=== PATIENT | female | born 1940 | race Caucasian/White ===

== ENCOUNTER 2022-02-12 21:30 | Emergency (ER) | payer MEDICARE, SELFPAY ==
[2022-02-12 21:32] VITALS: BP 184/71; PULSE 79; RESP 16; TEMP 36.9; O2SAT 96; BMI 23.3
[2022-02-12 21:39] VITALS: BMI 23.3
--- NOTE | 2022-02-12 21:40 | CT_ITS ---
PROCEDURE INFORMATION: Exam: CT Abdomen And Pelvis With Contrast Exam date and time: 02/12/2022 10:27 PM Age: 82 years old Clinical indication: Abdominal pain; Generalized; Additional info: Abd pain TECHNIQUE: Imaging protocol: Computed tomography of the abdomen and pelvis with contrast. Radiation optimization: All CT scans at this facility use at least one of these dose optimization techniques: automated exposure control; mA and/or kV adjustment per patient size (includes targeted exams where dose is matched to clinical indication); or iterative reconstruction. Contrast material: ISOVUE; Contrast volume: 75 ml; Contrast route: IV; COMPARISON: No relevant prior studies available. FINDINGS: Heart: Coronary artery calcifications. Liver: Mild fatty infiltration of the liver along the falciform ligament. Gallbladder and bile ducts: Distended gallbladder. Pancreas: Normal. No ductal dilation. Spleen: Normal. No splenomegaly. Adrenal glands: Normal. No mass. Kidneys and ureters: Low attenuation renal lesions measuring up to 9 mm in diameter are incompletely characterized, but are likely cysts. No followup imaging is warranted. Stomach and bowel: Posterior gastric diverticulum. Small amount of free fluid in the pelvis likely related to bowel pathology. Appendix: Unremarkable appendix. Intraperitoneal space: Unremarkable. No free air. No significant fluid collection. Vasculature: The arteries demonstrate moderate atherosclerotic disease. Lymph nodes: Unremarkable. No enlarged lymph nodes. Urinary bladder: Unremarkable as visualized. Reproductive: There is a left ovarian mass measuring 3.5 x 2.7 cm image 101 series 3. Bones/joints: The lumbar spine demonstrates moderate degenerative changes at multiple levels. Soft tissues: There is a small right inguinal hernia containing a short segment of small bowel. The small bowel proximal to this is fluid-filled and dilated. Other findings: Stigmata of old granulomatous disease. IMPRESSION: 1. There is a small right inguinal hernia containing a short segment of small bowel. The small bowel proximal to this is fluid-filled and dilated. This is worrisome for incarcerated hernia causing small bowel obstruction. 2. There is a left ovarian mass measuring 3.5 x 2.7 cm image 101 series 3. Outpatient follow-up ultrasound versus contrast-enhanced MRI is recommended to exclude malignancy. 3. THIS REPORT CONTAINS FINDINGS THAT MAY BE CRITICAL TO PATIENT CARE. The findings were verbally communicated via telephone conference with BROOKE MATOS at 11:11 PM EDT on 02/12/2022. The findings were acknowledged and understood. COMMENTS: Consistent with the [employer]'s Incidental Findings Committee white paper (J Am Cristopher Radiol 2018): Any incidental renal lesion less than 1 cm or classified as too small to characterize, or any incidental cystic renal lesion characterized as simple-appearing, is likely benign. No follow-up imaging is recommended for these lesions per consensus recommendations based on imaging criteria.
[2022-02-12 21:44] LABS: Coronavirus 19, PCR Not Detected (NotDetected); Influenza A, PCR Not Detected (NotDetected); Influenza B, PCR Not Detected (NotDetected)
[2022-02-12 21:53] LABS: Basophils # 0.1 K/mm3 (0-0.2); Basophils % 0.6 % (0.1-2.0); Eosinophils # 0.1 K/mm3 (0.0-0.4); Eosinophils % 1.2 % (0.1-12.0); Hematocrit 44.5 % (37.0-47.0); Lymphocytes % 9.1 % (10-50); Mean Corpuscular HGB Conc 31.6 g/dL (31.8-35.4); Mean Corpuscular Hemoglobin 30.7 pg (27.0-31.2); Mean Corpuscular Volume 97.1 fl (81-99); Mean Platelet Volume 8.2 fl (7.4-10.4); Monocytes # 0.3 K/mm3 (0.1-1.0); Monocytes % 2.5 % (1.7-9.3); Neutrophils # 9.1 K/mm3 (1.8-7.8); Neutrophils % 86.7 % (37.0-80.0); Platelet Count 311 K/mm3 (142-424); Red Blood Count 4.58 M/mm3 (4.20-5.40); Red Cell Distribution Width 13.1 % (11.5-17.5); White Blood Count 10.5 K/mm3 (4.8-10.8)
[2022-02-12 21:54] LABS: MANUAL DIFFERENTIAL MANUAL DIFFERENTIAL (MANUAL DIFF)
[2022-02-12 22:02] LABS: Alanine Aminotransferase 22 U/L (12-78); Albumin Level 4.6 g/dl (3.5-5.0); Albumin/Globulin Ratio 1.3 (1.1-1.8); Alkaline Phosphatase 120 U/L (38-126); Amylase 70 U/L (30-110); Anion Gap 13.9 mEq/L (5-15); Aspartate Amino Transferase 31 U/L (14-36); Bilirubin,Total 0.7 mg/dl (0.2-1.3); Blood Urea Nitrogen 18 mg/dl (7-17); Calcium 10.1 mg/dl (8.4-10.2); Carbon Dioxide 32 mmol/L (22.0-30.0); Chloride 99 mmol/L (98-107); Creatinine Clearance Estimated 44 mL/min (50-200); Estimated Glomerular Filt Rate 53 ml/min (>60); GFR (African American) 64 ML/MIN (>60); Globulin 3.5 g/dL (1.3-3.2); Glucose 194 mg/dl (74-100); Lipase 56 U/L (23-300); Potassium 3.9 mmoL/L (3.5-5.1); Sodium 141 mmol/L (136-145); Total Protein,Serum 8.1 g/dl (6.3-8.2)
[2022-02-12 22:07] LABS: C-Reactive Protein 1.2 mg/L (0-4)
[2022-02-12 22:21] LABS: Procalcitonin 0.046 ng/mL (0.0-2.0)
--- NOTE | 2022-02-12 22:24 | PC.NURSE ---
Checked in on patient. Shes currently resting with family at bedside. Patient offered a warm blanket. Lights are dimmed for patient comfort. Rechecked patients nausea and abdominal pain. Pt states that the medications have only helped a little. MD notified, pending new orders.
[2022-02-12 22:41] LABS: Erythrocyte Sedimentation Rate 22 mm/hr (0-30)
[2022-02-12 22:49] LABS: NT Pro Brain Natriuretic Pep. 234 pg/mL (0-450)
[2022-02-12 22:50] LABS: Lymphocytes % 16 % (10-50); Monocytes % 1 % (2-9); Neutrophils % 83 % (42-76); Platelet Estimate Normal; RBC Morphology Normal; Total Cells Counted 100
[2022-02-12 23:00] VITALS: BP 146/65; PULSE 75; O2SAT 96
[2022-02-12 23:30] VITALS: BP 145/67; PULSE 78; O2SAT 96
--- NOTE | 2022-02-12 23:52 | HMH.EDNVD ---
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 The time I documented below is in addition to time spent performing reported procedures but includes the following listed in this critical care notation. Medical Decision Making - Medical Records Medical records reviewed: Yes: I reviewed the patient's medical records. - Yobany Inquiry Pt receiving controlled substance: No Vital Signs: 02/12/22 21:32 Temperature 98.4 F Temperature Source Oral Pulse Rate [Right] 79 Respiratory Rate 16 Blood Pressure [Right Arm] 184/71 H Blood Pressure Mean [Right Arm] 108 02 Sat by Pulse Oximetry 96 - Lab Data Lab results reviewed: Yes: I reviewed the patient's lab results. Lab Results 02/12/22 21:35: SARS-CoV-2 (PCR) Not detected, Influenza A Untype (PCR) Not detected, Influenza Type B (PCR) Not detected 02/12/22 21:44: WBC 10.5, RBC 4.58, Hgb 14.0, Hct 44.5, MCV 97.1, MCH 30.7, MCHC 31.6 L, RDW 13.1, Plt Count 311, MPV 8.2, Neut % (Auto) 86.7 H, Lymph % (Auto) 9.1 L, Mitchell % (Auto) 2.5, Eos % (Auto) 1.2, Baso % (Auto) 0.6, Neut # (Auto) 9.1 H, Lymph # (Auto) 1.0, Mitchell # (Auto) 0.3, Eos # (Auto) 0.1, Baso # (Auto) 0.1, Total Counted 100, Neutrophils % (Manual) 83 H, Lymphocytes % (Manual) 16, Monocytes % (Manual) 1 L, Platelet Estimate Normal, RBC Morphology Normal, ESR 22 02/12/22 21:44: Sodium 141, Potassium 3.9, Chloride 99, Carbon Dioxide 32 H, Anion Gap 13.9, BUN 18 H, Creatinine 1.00, Estimated Creat Clear 44, Estimated GFR 53 L, Est GFR ( Amer) 64, Glucose 194 H, Calcium 10.1, Total Bilirubin 0.7, AST 31, ALT 22, Alkaline Phosphatase 120, C-Reactive Protein 1.2, Total Protein 8.1, Albumin 4.6, Globulin 3.5 H, Albumin/Globulin Ratio 1.3, Amylase 70, Lipase 56, Procalcitonin 0.046 02/12/22 21:44: NT-Pro-B Natriuret Pep 234 Result diagrams: 02/12/22 21:44 02/12/22 21:44 Orders (Tests/Meds): ED MEDICATIONS Generic Name Dose Route Start Last Admin Trade Name Freq PRN Reason Stop Dose Admin Sodium Chloride 1,000 mls @ 999 mls/hr 02/12/22 21:45 02/12/22 21:50 Sod Chlor 0.9% 1000ml Bag IV 02/12/22 22:45 999 mls/hr .Q1H1M ARNOLD Administration Sodium Chloride 8 ml 02/12/22 21:42 Sodium Chloride 0.9% 10ml Vial IV 03/14/22 21:41 NEEDED PRN dilute pepcid Discontinued Medications Generic Name Dose Route Start Last Admin Trade Name Freq PRN Reason Stop Dose Admin Famotidine 20 mg 02/12/22 21:42 02/12/22 21:51 Famotidine 20mg/2ml Vial IV 02/12/22 21:43 20 mg ONCE ONE Administration Iopamidol 75 ml 02/12/22 22:37 02/12/22 22:37 Iopamidol-370 (76%);100ml Bottle IV 02/12/22 22:38 75 ml ONCE ONE Administration Metoclopramide HCl 10 mg 02/12/22 21:42 02/12/22 21:51 Metoclopramide Hcl 10mg/2ml Vial IVP 02/12/22 21:43 10 mg ONCE ONE Administration Ondansetron HCl 4 mg 02/12/22 21:42 02/12/22 21:51 Ondansetron 4mg/2ml Vial IV 02/12/22 21:43 4 mg ONCE ONE Administration Sodium Chloride 10 ml 02/12/22 22:37 02/12/22 22:37 Sodium Chloride 0.9% 10ml Syr (Rad Only) IV 02/12/22 22:38 10 ml ONCE ONE Administration ORDERS Category Date Time Status Urinalysis and Microscopic Stat Lab 02/12/22 21:40 Ordered - CT Data CT Scan: Abdomen, Pelvis Time Received: 00:[address] Reviewed: Yes: I have viewed the radiologist's interpretation Preliminary Findings: Abnormal (see report ) - Physician Consu
[2022-02-13] VITALS: BP 134/64; PULSE 77; O2SAT 95
[2022-02-13 00:09] VITALS: BP 134/64; PULSE 77; RESP 16; TEMP 36.9; O2SAT 95
== END 2022-02-13 00:17 | disposition home or self-care (01) ==
PROVIDERS: Emergency Provider Emergency Medicine; PCP Family Medicine
DX: K40.30 Unilateral inguinal hernia, with obstruction, without gangrene, not specified as recurrent (principal); R11.2 Nausea with vomiting, unspecified; Z20.822 Contact with and (suspected) exposure to COVID-19; Z79.899 Other long term (current) drug therapy; Z88.0 Allergy status to penicillin
CPT/HCPCS: 74177; 80053; 82150; 83690; 83880; 84145; 85007; 85025; 85651; 86140; 96361; 96374; 96375; 99285; C9803; J2405; Q9967; U0003; U0005

== ENCOUNTER → 2022-03-06 13:47 | Outpatient (CLI) | payer MEDICARE, SELFPAY ==
--- NOTE | 2022-03-06 13:51 | US_ITS ---
FINAL REPORT CLINICAL HISTORY: LT OVARIAN MASS FINDINGS: Transvaginal sonographic images of the pelvis were obtained. The uterus is surgically absent. The right ovary is not visualized. The left ovary appears enlarged with a solid-appearing mass measuring 3.3 cm with a small cyst or cystic component adjacent to it. IMPRESSION: 3.3 cm solid-appearing mass in the left ovary worrisome for neoplasm. Reviewed, Interpreted and Dictated by Bhaskar Abraham III, MD Transcribed by Demetria Waddell Authenticated and [facility]
== END ==
PROVIDERS: PCP Family Medicine; Visit Provider Family Medicine
DX: D39.12 Neoplasm of uncertain behavior of left ovary (principal)
CPT/HCPCS: 76830

== ENCOUNTER → 2022-05-02 09:55 | Outpatient (CLI) | payer MEDICARE, SELFPAY ==
[2022-05-03 08:16] LABS: Cancer Antigen (CA) 125 6.4 U/mL (0.0-38.1)
== END ==
PROVIDERS: PCP Family Medicine; Visit Provider Nurse Practitioner Obstetrics & Gynecology
DX: K40.30 Unilateral inguinal hernia, with obstruction, without gangrene, not specified as recurrent (principal); N83.8 Other noninflammatory disorders of ovary, fallopian tube and broad ligament
CPT/HCPCS: 36415; 86316

== ENCOUNTER → 2022-05-16 10:21 | Outpatient (CLI) | payer MEDICARE, SELFPAY ==
--- NOTE | 2022-05-16 10:32 | ECG_ITS ---
APPROVED REPORT Exam: Resting ECG HR:56 bpm ECG Measurements Heart Rate 56 AXES WI 136 P 50 QRSd 120 QRS 64 QT 389 T 36 QTc 382 Conclusion SINUS BRADYCARDIA WITH OCCASIONAL SUPRAVENTRICULAR PREMATURE COMPLEXES INFERIOR MYOCARDIAL INFARCTION , PROBABLY OLD [40+ ms Q WAVE AND/OR ST/T ABNORMALITY IN II/aVF] ANTEROLATERAL MYOCARDIAL INFARCTION , PROBABLY OLD [40+ ms Q WAVE IN I/aVL/V3-V6] ABNORMAL ECG UNCONFIRMED REPORT Electronically signed by : Yovanny Magaña MD 05/16/2022 22:04:09
[2022-05-16 10:37] LABS: Microscopic, Urine URINE MICROSCOPIC (MICROSCOPIC)
[2022-05-16 10:57] LABS: Appearance,Urine SL CLOUDY (Clear); Bilirubin,Urine Negative (Negative); Blood, Urine Negative (Negative); Color,Urine YELLOW (Yellow); Glucose,Urine (UA) Negative (Negative); Ketones,Urine Negative (Negative); Leukocyte Esterase,Urine TRACE (Negative); Nitrate,Urine Negative (Negative); Protein,Urine Negative (Negative); Urobilinogen,Urine 0.2 EU/dl (0.2)
[2022-05-16 11:04] LABS: Basophils # 0.1 K/mm3 (0-0.2); Eosinophils # 0.1 K/mm3 (0.0-0.4); Eosinophils % 2.7 % (0.1-12.0); Hematocrit 42.7 % (37.0-47.0); Hemoglobin 13.1 g/dL (12.2-16.2); Lymphocytes # 1.9 K/mm3 (0.7-4.5); Lymphocytes % 41.9 % (10-50); Mean Corpuscular HGB Conc 30.8 g/dL (31.8-35.4); Mean Corpuscular Hemoglobin 30.3 pg (27.0-31.2); Mean Corpuscular Volume 98.5 fl (81-99); Mean Platelet Volume 8.1 fl (7.4-10.4); Monocytes # 0.2 K/mm3 (0.1-1.0); Neutrophils # 2.3 K/mm3 (1.8-7.8); Neutrophils % 49.2 % (37.0-80.0); Platelet Count 281 K/mm3 (142-424); Red Blood Count 4.33 M/mm3 (4.20-5.40); Red Cell Distribution Width 13.1 % (11.5-17.5); White Blood Count 4.6 K/mm3 (4.8-10.8)
[2022-05-16 11:28] LABS: Chloride 101 mmol/L (98-107); Potassium 4.2 mmoL/L (3.5-5.1); Sodium 142 mmol/L (136-145)
[2022-05-16 11:29] LABS: Bacteria,Urine Trace /lpf; WBC,Urine Occasional #/hpf (0-3)
[2022-05-16 11:30] LABS: Squamous Epithelial Cell,Urine Occasional #/hpf (0-5)
[2022-05-16 11:31] LABS: Anion Gap 13.2 mEq/L (5-15); Blood Urea Nitrogen 20 mg/dl (7-17); Calcium 10.1 mg/dl (8.4-10.2); Carbon Dioxide 32 mmol/L (22.0-30.0); Estimated Glomerular Filt Rate 60 ml/min (>60); GFR (African American) 73 ML/MIN (>60); Glucose 96 mg/dl (74-100)
== END ==
PROVIDERS: PCP Family Medicine; Visit Provider Surgery
DX: K40.30 Unilateral inguinal hernia, with obstruction, without gangrene, not specified as recurrent (principal); K40.90 Unilateral inguinal hernia, without obstruction or gangrene, not specified as recurrent
CPT/HCPCS: 36415; 80048; 81001; 85025; 93005

== ENCOUNTER 2022-05-30 12:19 | Emergency (ER) | payer MEDICARE, SELFPAY ==
[2022-05-30 12:29] VITALS: BP 159/85; PULSE 104; RESP 18; O2SAT 95; BMI 23.3
--- NOTE | 2022-05-30 12:41 | XR_ITS ---
FINAL REPORT TECHNIQUE: Chest PA & Lateral CLINICAL HISTORY: cough, congestion FINDINGS: 2 views of the chest were performed. The heart size is normal. The mediastinum is within normal limits. There is no acute cardiopulmonary process. There are no pleural effusions. There is no pneumothorax. The bony thorax appears intact. IMPRESSION: No acute cardiopulmonary process. Reviewed, Interpreted and Dictated by Bhaskar Abraham III, MD Transcribed by Krishna Mojica Authenticated and . [facility]
--- NOTE | 2022-05-30 12:41 | EXP.UTC ---
Discharge Plan Disposition Patient Disposition: Home, Self-Care Condition: Good Prescriptions Prescriptions: New benzonatate [benzonatate] 100 mg capsule 100 mg PO TIDP PRN (Reason: Cough) Qty: 30 0RF oseltamivir [Tamiflu] 75 mg capsule 75 mg PO BID Qty: 10 0RF methylprednisolone 4 mg Tablets,Dose Pack 4 mg PO DIRECTED Qty: 21 0RF cefdinir 300 mg capsule 300 mg PO BID Qty: 20 0RF No Action lisinopril 20 MG tablet 20 mg PO DAILY omeprazole 20 MG capsule,delayed release(DR/EC) 20 mg PO DAILY furosemide 20 MG tablet 20 mg PO DAILY Referrals Follow up/Referrals: Kiersten Stevens MD [Primary Care Provider] - See instructions Activity Restrictions/Add. Instructions Additional Instructions/Restrictions: Drink plenty of fluids. Take tylenol or ibuprofen for pain or fever. Take the medications as directed. Follow up with your regular doctor. GO TO THE ER FOR ANY WORSENING SYMPTOMS Clinical Impressions Clinical Impression: Influenza A, Strep throat Instructions Patient Instructions: DI for Influenza -- Adult, Oseltamivir Discharge ED Provider: Damon Hollis [facility] General Stated complaint: Vomitting, Cough, Drainage, Weakness Mode of Arrival: Wheelchair Source of Information: Patient Limitations: No Limitations Time Seen by Provider: 05/30/22 12:45 Description of Symptoms (Recalled from Triage Doc. by RN): c/o vomiting, drainage and cough since last night. States she feels like she is having motion sickness History of Present Illness Provider Complaint: She states that she has had sore throat, chills, chest congestion, and body aches for the past 1 day. Related Data Home Medications Medication Instructions Recorded Confirmed furosemide 20 mg tablet 20 mg PO DAILY Fluid 02/12/22 05/16/22 lisinopril 20 mg tablet 20 mg PO DAILY High blood pressure 02/12/22 05/16/22 omeprazole 20 mg capsule,delayed 20 mg PO DAILY GERD 02/12/22 05/16/22 release Previous Rx's Medication Instructions Recorded benzonatate 100 mg capsule 100 mg PO TIDP PRN Cough #30 caps 05/30/22 cefdinir 300 mg capsule 300 mg PO BID #20 caps 05/30/22 methylprednisolone 4 mg tablets in 4 mg PO DIRECTED #21 tabs 05/30/22 a dose pack oseltamivir 75 mg capsule (Tamiflu) 75 mg PO BID #10 caps 05/30/22 Allergies Allergy/AdvReac Type Severity Reaction Status Date / Time rosuvastatin [From Crestor] Allergy Unknown paralysis Verified 05/30/22 12:53 Penicillins Allergy Verified 05/30/22 12:53 [facility] Medical History Cataract GERD (gastroesophageal reflux disease) HBP (high blood pressure) Surgical History History of dental surgery History of partial hysterectomy Social History Smoking Status: Never smoker alcohol intake: never current occupational status: retired Travel in the last 8 weeks: None ROS Obtained: Yes All systems reviewed & no additional complaints except as documented Constitutional Constitutional: Reports chills and Reports fever(s) Eyes Eyes: Denies eye discharge ENT Ears, Nose, Mouth, and Throat: Reports as per HPI Cardiovascular Cardiovascular: Denies chest pain Respiratory Respiratory: Denies chest congestion and Reports cough Gastrointestinal Gastrointestingal: Reports nausea; Denies abdominal pain, constipation, cramping, diarrhea or vomiting Musculoskeletal Musculoskeletal: Denies arthralgias Integumentary/Breasts Skin/Breast: Denies rash Neurologic Neurologic: Denies paresthesias Physical Exam General General appearance: alert and in no apparent distress Head Head exam: atraumatic, normocephalic and normal inspection Eye Eye exam: Present normal appearance, PERRL and EOMI ENT ENT exam: Present mucous membranes moist and normal external ear exam Expanded ENT Exam TM/Canal
[2022-05-30 12:51] VITALS: BP 159/85; PULSE 104; RESP 18; TEMP 38.3; O2SAT 96; BMI 23.3
[2022-05-30 12:58] LABS: UTC Influenza A Antigen Positive (Negative); UTC Influenza B Antigen Negative (Negative)
[2022-05-30 13:54] LABS: UTC Strep Screen (Rapid) Positive (Negative)
[2022-05-30 13:57] VITALS: BP 159/85; PULSE 104; RESP 18; TEMP 38.3
== END 2022-05-30 13:58 | disposition home or self-care (01) ==
PROVIDERS: Emergency Provider Nurse Practitioner Family; PCP Family Medicine
DX: J02.0 Streptococcal pharyngitis (principal); J10.1 Influenza due to other identified influenza virus with other respiratory manifestations
CPT/HCPCS: 71046; 87804; 87880; 99212; G0463

== ENCOUNTER 2022-06-21 07:43 | Day surgery (SDC) | payer MEDICARE, SELFPAY ==
[2022-06-21 08:00] VITALS: BP 167/70; PULSE 83; RESP 18; TEMP 36.4; O2SAT 97; BMI 22.8
--- NOTE | 2022-06-21 08:26 | SUR.PREOP ---
Pt c/o chest pressure. No pain, just pressure, no SOA. Updated Shireen Montanez FLAME BURNER, ekg ordered. RT at bedside.
--- NOTE | 2022-06-21 08:28 | ECG_ITS ---
APPROVED REPORT Exam: Resting ECG HR:62 bpm ECG Measurements Heart Rate 62 AXES MI 149 P 52 QRSd 109 QRS 66 QT 377 T 54 QTc 383 Conclusion SINUS RHYTHM Normal ecg UNCONFIRMED REPORT Electronically signed by : Yovanny Magaña MD 06/22/2022 16:51:32
--- NOTE | 2022-06-21 10:04 | SUR.PREOP ---
Dr. Pantoja in to speak with pt and family. Surgery cancelled for today. Contacted cardiology to consult with patient. Candie Contreras in to see patient. Labs ordered. Pt denies any further c/o's. Pt agreeable with plan of care. Family remains at bedside.
[2022-06-21 10:47] LABS: Troponin I < 0.01 ng/ml (0.00-0.034)
--- NOTE | 2022-06-21 11:00 | SUR.PREOP ---
Troponin level <0.01 called to Candie Contreras. Ok to send patient home. Appt scheduled to see Cardiology for 06/28/22 at 0830. Appt card given to pt and family. Dr. Stevens's office also notified of surgery cancellation. IV removed with cath intact. Site clear. 2x2 and coban applied. Pt dressed and ambulatory to exit with family. No c/o's upon discharge.
--- NOTE | 2022-06-21 11:56 | EXP.CARD.CON ---
History of Present Illness History of Present Illness Consult date: 06/21/22 Requesting physician: Abhijit Pantoja Consult reason: chest pain Chief complaint: Op for hernia repair, had chest pain Additional Medical History:: Past medical history: Hyperlipidemia Hypertension Right inguinal hernia History of present illness: 82-year-old white female presented to preop today for scheduled hernia repair when developed anterior chest pressure lasting about 5 minutes per patient. Patient denies any shortness of breath or nausea, states pain went away on its own. EKG obtained shows sinus rhythm with a rate of 62 with occasional PACs with no acute ischemic changes noted. Troponin was drawn and negative. Patient remains pain-free at this time. Cardiology was asked to evaluate patient surgery has been postponed currently. Patient denies any symptoms at present. [facility] Disclaimer: The information contained in this section may have been updated after the patient was seen, as this information can be updated by other users. Medical History Cataract GERD (gastroesophageal reflux disease) HBP (high blood pressure) Surgical History History of dental surgery History of partial hysterectomy Family History Other Family history of cancer Family history of diabetes mellitus type II Family history of stroke Social History (Updated 06/21/22 @ 08:03 by Payton Scott RN) Smoking Status: Never smoker alcohol intake: never current occupational status: retired Travel in the last 8 weeks: None Review of Systems Review of Systems Review of systems:: pertinent systems reviewed and negative unless documented below Exam Data for Last 24 hours Vital signs and Labs for Last 24 Hours: Temp Pulse Resp BP Pulse Ox 97.6 F 83 18 167/70 H 97 06/21/22 08:00 06/21/22 08:00 06/21/22 08:00 06/21/22 08:00 06/21/22 08:00 Laboratory Results - last 24 hr 06/21/22 10:10: Troponin I < 0.01 I & O for Last 24 hours: Intake & Output 06/18/22 06/19/22 06/20/22 06/21/22 23:59 23:59 23:59 23:59 Weight 137 lb Constitutional Constitutional: no acute distress *Routine Respiratory Exam Respiratory: Present CTA bilaterally and symmetric chest movement *Routine Cardiovascular Exam Cardiovascular: Present RRR, Normal S1 and Normal S2 *Routine Abdominal Exam Abdominal: Present soft and normoactive bowel sounds; Absent tenderness *Routine Extremities Exam Extremities: Present full ROM and normal capillary refill; Absent edema *Routine Skin Exam Skin: Present intact, dry and warm Detailed Neck Exam: Thyroids Thyroid: Absent bruit Meds Home Medications and Allergies Home Medications Medication Instructions Recorded Confirmed Type furosemide 20 mg tablet 20 mg PO DAILY Fluid 02/12/22 06/21/22 History lisinopril 20 mg tablet 20 mg PO BID High blood pressure 02/12/22 06/21/22 History omeprazole 20 mg capsule,delayed 20 mg PO DAILY GERD 02/12/22 06/21/22 History release clonidine HCl 0.2 mg tablet 0.2 mg PO NEEDED PRN HTN 06/19/22 06/21/22 History New Prescriptions to Start Prescriptions: Allergies Allergy/AdvReac Type Severity Reaction Status Date / Time Penicillins Allergy Severe SWELLING Verified 06/21/22 07:57 rosuvastatin [From Crestor] Allergy Severe paralysis Verified 06/21/22 07:57 Assessment and Plan *Assessment and plan (1) Atypical chest pain: Status: Acute Category: Medical Code(s): R07.89 - Other chest pain Plan Atypical angina- Single episode at rest -EKG negative for acute ischemic changes -Troponin negative -Patient denies chest pain or shortness of breath presently -Patient denies cardiac history. -Reports good functional capacity at home-reports can walk up 1 flight of stairs without ex
== END 2022-06-21 11:00 ==
LOC: OR 07:44
PROVIDERS: Nurse Practitioner; PCP Family Medicine; Visit Provider Surgery
DX: Z53.09 Procedure and treatment not carried out because of other contraindication (principal); R07.89 Other chest pain; K40.90 Unilateral inguinal hernia, without obstruction or gangrene, not specified as recurrent
CPT/HCPCS: 49650; 84484; 93005

== ENCOUNTER → 2022-07-05 06:58 | Outpatient (CLI) | payer MEDICARE, SELFPAY ==
--- NOTE | 2022-07-05 06:59 | NM_ITS ---
APPROVED REPORT Exam: Nuclear Stress Test Indication: DYSRHYTHMIA, HTN, FM HX, C.P., PRE-OP Patient Location: Outpatient Stress Tech: Lore Little [place] Tech:AIMEE Duckworth RT (R)(N)(M) Ht: 5 ft 5 in Wt: 140 lbs Bra Size: D HR: 62 bpm BP: 164/60 mmHg BSA: 1.70 m2 TID: 1.21 BMI: 23.2 History: DYSRHYTHMIA, HTN, FM HX, C.P., PRE-OP Procedure: Patient received a 0.4 mg of intravenous Lexiscan, resting heart rate 62 bpm, resting blood pressure 164/60 mmHg, with Lexiscan maximum heart rate achived was 97 bpm which is Less than 85 % of the maximum predicted heart rate and blood pressure was 167/72 mmHg. With Lexiscan, patient denied any complaint of chest pain. Electrocardiogram Resting electrocardiogram showed sinus rhythm, with the Lexiscan there is less than 1.[address] segment depression noted from the baseline EKG. The EKG portion of the Lexiscan is nondiagnostic. Cardiac Stress and Resting SPECT Images: Cardiac Stress and Resting SPECT images were obtained using technetium 99m Myoview 31.6 mCi stress and 10.70 mCi at rest. Gated SPECT analysis of segmental wall motion and calculation of the ejection fraction also done. Cardiac stress and rest SPECT images show uniform myocardial activity without segmental perfusion abnormality, computer derived ejection fraction is 54% with no regional wall motion abnormality, right ventricle is normal size and contractility. Conclusion: 1. The EKG portion of the Lexiscan is nondiagnostic. 2. No scintigraphic evidence of reversible ischemia seen, computer derived ejection fraction is 54% with no regional wall motion abnormality, right ventricle is normal size and contractility. 3. Normal Lexiscan Myoview study. Electronically signed by : Jacky Sandra MD 07/06/2022 10:09:15
--- NOTE | 2022-07-05 06:59 | CA_ITS ---
APPROVED REPORT Exam: Pharmacologic Technologist: Lore Collado, Ht: 5 ft 5 in Wt: 140 lbs BSA: 1.70 m2 HR: 62 bpm BP: 164/60 mmHg Medical History Medications: Lisinopril,,,,, Omeprazole,,,,, Furosemide,,,,, Clonidine HCI,,,,, Stress Test Details Test: LEXISCAN Reason for pharmacologic stress test: physical limitation. HR Resting HR: 69 bpm Max Heart Rate (APMHR): 139.004670 bpm Max HR Achieved: 105 bpm Target HR (85% APMHR): 118.039638 bpm % of APMHR: 75.54 Recovery HR: 84 bpm BP Resting BP: 164/60 mmHg Max BP: 167/72 mmHg Recovery BP: 143.0/65.0 mmHg ECG Resting ECG: NSR, frequent PACs in bigeminal pattern, small Q waves inferiorly & laterally Clinical Exercise duration: 04:05 min Highest Stage Achieved: Exercise capacity: 1.0 METs Stress ECG Conclusion Symptoms: stomach discomfort. No CP. Arrhythmias/Ectopy: Freq PACs at lower heart rate. ST-T Changes: No significant changes. Conclusion: Unremarkable Lexiscan stress. Myoview images reported separately. Test Summary REST . . . . . . . Resting REST 06:36 . . 69 . 164/ 60 . . Stage 1 01:00 . . 94 . . . . Stage 2 01:00 . . 100 . 167/ 72 . . Stage 3 01:00 . . 89 . 166/ 71 . . Stage 4 01:00 . . 87 . . . . Stage 4 01:05 . . 84 . 161/ 64 . Stop exercise at 04:05 RECOVERY 01:00 . . 98 . . . . RECOVERY 02:00 . . 86 . . . . RECOVERY 03:00 . . 77 . 162/ 63 . . RECOVERY 03:37 . . 88 . 143/ 65 . . Electronically signed by : Jacky Sandra MD 07/06/2022 10:02:47
--- NOTE | 2022-07-05 06:59 | CA_ITS ---
APPROVED REPORT EXAM: Comprehensive 2D, Doppler, and color-flow Echocardiogram Public Welfare Director: Tanvi Rich RVT Ht: 5 ft 5 in Wt: 140lbs BSA: 1.70 BP: 182/83 mmHg Indications: CP,GERD,PRE-OP,ABN EKG,HTN 2D Dimensions LVOT 2.15 cm (M/F) 1.5-2.5 LA Volume 21.60 mL LA Volume Index 12.71 mL/m2 (M/F) 16-34 M-Mode Dimensions RVDd 2.87 cm (0.9-2.6) LA Diam 3.63 cm (1.9-4.0) LVDd 3.81 cm (3.5-5.7) Ao Diam 2.83 cm (2.0-3.7) LVDs 2.43 cm (3.5-5.7) IVSd 0.62 cm (0.6-1.1) PWd 0.66 cm (0.6-1.1) EF (Teich) 66.60% FS 36.20% EDV (Teich) 62.30 mL TAPSE 2.02 (<1.7) ESV (Teich) 20.80 mL LV Diastology E Decel Time 240.00 (160-240 msec) E/A Ratio 0.8 MED E' 5.20 (< 7 cm/sec) E'/MED E' Ratio 15.77 (>14) LAT E' 10.20 (<10 cm/sec) E/LAT E' Ratio 8.04 (>14) Aortic Valve AO Peak GR. 7.90 mmHg Mitral Valve MV E Max Cuco. 82.00 (40-130 cm/s) MV A Velocity 101.00 (40-130 cm/s) E/A Ratio 0.81 MV Decel. Time 240.00 (160-240 ms) MV PHT 70.00 ms Pulmonary Valve PV Peak Velocity 97.00 (50-150 cm/s) Tricuspid Valve TR P. Velocity 305.00 cm/s RAP Estimate 10.00 mmHg RVSP 47.20 mmHg Left Ventricle Left atrium is mildly enlarged, left ventricle is normal size, mild concentric left ventricular hypertrophy, estimated ejection fraction 55% with no regional wall motion abnormality, grade 1 diastolic dysfunction seen without tissue Doppler evidence of raise left atrial pressure. Right Ventricle Right atrium and right ventricle are mildly enlarged with normal contractility. Aortic Valve Aortic valve is minimally thickened and calcified without aortic stenosis or aortic insufficiency. Mitral Valve Mitral valve is grossly normal, there is trace mitral regurgitation. Tricuspid Valve Tricuspid valve grossly normal, there is trace tricuspid regurgitation, tricuspid regurgitation jet velocity is inadequate for calculation of Pulmonic Valve Pulmonic valve is poorly visualized. Great Vessels Aortic root is normal size. Inferior vena cava is poorly visualized. Pericardium No significant pericardial effusion noted. Conclusion 1. Mild biatrial enlargement, normal left ventricular size, mild concentric left ventricular hypertrophy, estimated ejection fraction 55% with no regional wall motion abnormality, grade 1 diastolic dysfunction seen without tissue Doppler evidence of raise left atrial pressure. 2. Mildly enlarged right ventricle with normal contractility. 3. Trace mitral and tricuspid regurgitation. 4. No significant pericardial effusion noted. 5. Inferior vena cava is poorly visualized. Electronically signed by : Jacky Sandra MD 07/06/2022 16:25:24
== END ==
PROVIDERS: PCP Family Medicine; Visit Provider Nurse Practitioner
DX: R07.89 Other chest pain (principal); R94.31 Abnormal electrocardiogram [ECG] [EKG]; Z01.810 Encounter for preprocedural cardiovascular examination
CPT/HCPCS: 78452; 93017; 93306; A9502; J2785

== ENCOUNTER → 2022-07-12 09:51 | Outpatient (CLI) | payer MEDICARE, SELFPAY ==
[2022-07-12 10:41] LABS: Basophils % 0.9 % (0.1-2.0); Eosinophils # 0.1 K/mm3 (0.0-0.4); Eosinophils % 1.5 % (0.1-12.0); Hematocrit 43.4 % (37.0-47.0); Hemoglobin 13.6 g/dL (12.2-16.2); Lymphocytes # 1.6 K/mm3 (0.7-4.5); Lymphocytes % 33.3 % (10-50); Mean Corpuscular HGB Conc 31.4 g/dL (31.8-35.4); Mean Corpuscular Hemoglobin 30.1 pg (27.0-31.2); Mean Platelet Volume 8.1 fl (7.4-10.4); Monocytes # 0.3 K/mm3 (0.1-1.0); Monocytes % 5.3 % (1.7-9.3); Neutrophils # 2.8 K/mm3 (1.8-7.8); Platelet Count 297 K/mm3 (142-424); Red Blood Count 4.52 M/mm3 (4.20-5.40); Red Cell Distribution Width 13.5 % (11.5-17.5); White Blood Count 4.7 K/mm3 (4.8-10.8)
[2022-07-12 10:59] LABS: Chloride 103 mmol/L (98-107)
[2022-07-12 11:00] LABS: Potassium 4.1 mmoL/L (3.5-5.1); Sodium 141 mmol/L (136-145)
[2022-07-12 11:03] LABS: Anion Gap 12.1 mEq/L (5-15); Blood Urea Nitrogen 13 mg/dl (7-17); Calcium 9.6 mg/dl (8.4-10.2); Carbon Dioxide 30 mmol/L (22.0-30.0); Estimated Glomerular Filt Rate 69 ml/min (>60); GFR (African American) 83 ML/MIN (>60); Glucose 100 mg/dl (74-100)
[2022-07-12 11:19] LABS: Triiodothryronine (T3) Uptake 27 % (23.5-40.5)
[2022-07-12 11:20] LABS: Free Thyroxine Index 2.4 ug/dL (5.93-13.13)
[2022-07-12 11:33] LABS: Thyroid Stimulating Hormone 1.33 uIU/mL (0.465-4.68)
== END ==
PROVIDERS: PCP Family Medicine; Visit Provider Physician Assistant
DX: I10 Essential (primary) hypertension (principal); I63.9 Cerebral infarction, unspecified; R94.31 Abnormal electrocardiogram [ECG] [EKG]; Z01.810 Encounter for preprocedural cardiovascular examination
CPT/HCPCS: 36415; 80048; 84436; 84443; 84479; 85025

== ENCOUNTER → 2022-07-19 07:53 | Outpatient (CLI) | payer MEDICARE, SELFPAY ==
--- NOTE | 2022-07-19 08:00 | US_ITS ---
FINAL REPORT CLINICAL HISTORY: Left ovarian mass COMPARISON: March 06 2022 FINDINGS: Transvaginal sonographic images of the pelvis were obtained. The uterus is surgically absent. The right ovary is not identified. The left ovary measures 3.5 cm in length. Normal blood flow seen. There is a solid-appearing left ovarian mass measuring 3.5 cm and previously measured 3.3 cm. There is also a 1.3 cm presumed left ovarian cyst which is stable. There is no evidence of free fluid. IMPRESSION: 3.5 cm solid-appearing left ovarian mass, worrisome for neoplasm, not significantly changed. Reviewed, Interpreted and Dictated by Bhaskar Abraham III, MD Transcribed by Caridad Chen Authenticated and [facility]
--- NOTE | 2022-07-19 08:00 | US_ITS ---
FINAL REPORT TECHNIQUE: Ultrasound images of the kidneys were obtained. CLINICAL HISTORY: R94.31 - Abnormal electrocardiogram ECG EKG FINDINGS: US RETROPERITONEAL The right kidney measures 9.5 cm in length. It is normal in echogenicity. There is no hydronephrosis. The left kidney measures 9.4 cm in length. It is normal in echogenicity. There is no hydronephrosis. The spleen is within normal limits. IMPRESSION: Unremarkable exam. Reviewed, Interpreted and Dictated by Bhaskar Abraham III, MD Transcribed by Caridad Chen Authenticated and [facility]
--- NOTE | 2022-07-19 08:53 | CA_ITS ---
FINAL REPORT TECHNIQUE: Grayscale, color Doppler and duplex Doppler ultrasound of the kidneys, aorta and renal arteries was performed. Multiple velocities were measured. CLINICAL HISTORY: HTN FINDINGS: Aorta velocity: 122 cm/sec Right kidney: 10.0 cm. No evidence of hydronephrosis or mass. Right intrarenal RI: 0.7 Right renal artery velocity: 156 cm/sec. Right RAR (Renal artery-Aortic Ratio): 1.3 Left Kidney: 9.6 cm. No evidence of hydronephrosis or mass. Left intrarenal RI: 0.7 Left renal artery velocity: 114 cm/sec. Left RAR (Renal Artery-Aortic Ratio): 0.94 IMPRESSION: No evidence of significant renal artery stenosis. CT angiogram or postcontrast MR angiogram would be more sensitive for evaluation of possible renal artery stenosis. Reviewed, Interpreted and Dictated by Bhaskar Abraham III, MD Transcribed by Caridad Chen Authenticated and [facility]
== END ==
PROVIDERS: PCP Family Medicine; Visit Provider Nurse Practitioner Obstetrics & Gynecology
DX: I10 Essential (primary) hypertension (principal); R94.31 Abnormal electrocardiogram [ECG] [EKG]; N83.8 Other noninflammatory disorders of ovary, fallopian tube and broad ligament
CPT/HCPCS: 76770; 76830; 93976

== ENCOUNTER 2022-09-06 09:39 | Day surgery (SDC) | payer MEDICARE, SELFPAY ==
[2022-09-05 10:37] VITALS: BMI 23.3
[2022-09-06] VITALS (10 sets, daily range): BP systolic 110–154; BP diastolic 51–81; PULSE 58–72; RESP 14–19; TEMP 36.4–43; O2SAT 94–98
[2022-09-06 10:32] LABS: Basophils # 0.1 K/mm3 (0-0.2); Basophils % 1.1 % (0.1-2.0); Eosinophils # 0.3 K/mm3 (0.0-0.4); Eosinophils % 6.3 % (0.1-12.0); Hematocrit 41.6 % (37.0-47.0); Hemoglobin 13.4 g/dL (12.2-16.2); Lymphocytes # 1.9 K/mm3 (0.7-4.5); Lymphocytes % 36.3 % (10-50); Mean Corpuscular HGB Conc 32.3 g/dL (31.8-35.4); Mean Corpuscular Hemoglobin 30.4 pg (27.0-31.2); Mean Corpuscular Volume 94.1 fl (81-99); Mean Platelet Volume 8.7 fl (7.4-10.4); Monocytes # 0.4 K/mm3 (0.1-1.0); Neutrophils # 2.5 K/mm3 (1.8-7.8); Neutrophils % 49.3 % (37.0-80.0); Platelet Count 266 K/mm3 (142-424); Red Blood Count 4.42 M/mm3 (4.20-5.40); Red Cell Distribution Width 13.6 % (11.5-17.5); White Blood Count 5.1 K/mm3 (4.8-10.8)
[2022-09-06 10:33] LABS: Microscopic, Urine URINE MICROSCOPIC (MICROSCOPIC)
[2022-09-06 10:37] LABS: Chloride 101 mmol/L (98-107); Potassium 3.9 mmoL/L (3.5-5.1); Sodium 139 mmol/L (136-145)
[2022-09-06 10:40] LABS: Blood Urea Nitrogen 19 mg/dl (7-17); Creatinine Clearance Estimated 44 mL/min (50-200); Estimated Glomerular Filt Rate 60 ml/min (>60); GFR (African American) 73 ML/MIN (>60)
[2022-09-06 10:41] LABS: Appearance,Urine CLEAR (Clear); Bilirubin,Urine Negative (Negative); Blood, Urine Negative (Negative); Color,Urine YELLOW (Yellow); Glucose,Urine (UA) Negative (Negative); Ketones,Urine Negative (Negative); Leukocyte Esterase,Urine 1+ (Negative); Nitrate,Urine Negative (Negative); Protein,Urine Negative (Negative); Urobilinogen,Urine 0.2 EU/dl (0.2)
[2022-09-06 10:41] LABS: Anion Gap 9.9 mEq/L (5-15); Calcium 9.2 mg/dl (8.4-10.2); Carbon Dioxide 32 mmol/L (22.0-30.0); Glucose 96 mg/dl (74-100)
[2022-09-06 10:54] LABS: Bacteria,Urine Trace /lpf
--- NOTE | 2022-09-06 13:41 | EXP.ANES.CKL ---
[facility] Disclaimer: The information contained in this section may have been updated after the patient was seen, as this information can be updated by other users. Medical History (Updated 09/05/22 @ 10:36 by Payton Scott RN) Allergies Atypical chest pain Cataract Diastolic dysfunction Edema Encounter for pre-operative cardiovascular clearance GERD (gastroesophageal reflux disease) HBP (high blood pressure) Heart murmur History of diverticulitis Polyp of duodenum Sinus headache Strep throat Surgical History History of cataract surgery History of dental surgery History of partial hysterectomy Family History Other Family history of cancer Family history of diabetes mellitus type II Family history of stroke Social History (Updated 09/05/22 @ 10:36 by Payton Scott RN) Smoking Status: Never smoker alcohol intake: never substance use type: denies use current occupational status: retired Travel in the last 8 weeks: None [facility] Anesthesia Checklist Patient Identification Patient Identification: Arm Band and Verbal (Name & ) Structural Data Admitted From: Home Planned Operative Procedure/s: Right Inguinal Hernia Repair Consent for Planned Operative Procedure(s) Verified: Yes Verified Documents: Surgical Consent NPO Status Verified Time NPO: 00:00 Chart Verification Results Verified: CBC and BMP Additional verifications Anesthesia Reactions: No Hx Blood Transfusions: No Blood Transfusion Reaction: No Airway Assessment C-Spine Mobility Assessed: Yes TMJ Mobility Assessed: Yes Dentition: Edentulous Neurological Assessment Level of Consciousness: Awake, Alert and Appropriate Anesthesia Plan Anesthesia Risk discussed: Yes ASA Class: II Anesthesia Type: General
--- NOTE | 2022-09-06 13:54 | EXP.OP.NOTE ---
Date of procedure: 09/06/22 Pre-op Diagnosis:: Right inguinal hernia Post-op Diagnosis:: Right inguinal hernia with indirect and direct defect Procedure performed:: Open right inguinal hernia repair Surgeon:: Abhijit Pantoja MD Anesthesia: LMA Estimated blood loss (mL): 15 Operative findings:: Pantaloon defect Operative note:: After informed consent was obtained the patient was taken to the operating room and placed in the supine position. General anesthesia was induced and her right groin and abdomen were prepped and draped in a sterile fashion. After infiltration local anesthetic an oblique right groin incision was made. The deep subcutaneous tissue was dissected with electrocautery through Panchito's fascia to the level of the external aponeurosis. The external aponeurosis was sharply opened to the level of the external ring. The contents of the canal were carefully elevated. 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 The direct defect and a 1.5 cm neck. The indirect defect had a 2 cm neck. A medium PerFix plug was secured in the indirect defect with interrupted Ethibond. An additional medium PerFix plug was secured in the direct defect with interrupted Ethibond. The PerFix overlay mesh was secured to the shelving edge inferiorly and fascial margin superiorly with interrupted Ethibond. The external aponeurosis was reapproximated with running Vicryl suture. Panchito's fascia was closed in the same manner. Skin was then closed with 3-0 Monocryl STRATAFIX. Dressings were applied and the patient was transferred to recovery in stable condition. Condition: stable Disposition: PACU Specimens:: None Complications:: No immediate
--- NOTE | 2022-09-06 13:59 | P.PNANES_ITS ---
[facility] Anesthesia Record Part I Anesthesia Record I Intake, IV Amount: 900 Estimated blood loss (mL): 10 Urine output (mL): 0 Blood Pressure: 110/53 SaO2: 96 Pulse Rate: 72 Respiratory Rate: 14 Temperature: 98.4 F Patient is:: Drowsy and Stable Stable to PACU at:: 14:59
[2022-09-06 14:13] LABS: Microscopic,Cath URINE MICROSCOPIC (MICROSCOPIC)
[2022-09-06 14:19] LABS: Appearance,Urine/Cath CLEAR (Clear); Bilirubin,Cath Negative (Negative); Blood, Urine/Cath Negative (Negative); Color,Urine/Cath YELLOW (Yellow); Glucose,Urine/Cath (UA) Negative (Negative); Ketones,Urine/Cath Negative (Negative); Leukocyte Esterase,Cath TRACE (Negative); Nitrate,Cath Negative (Negative); Protein,Urine/Cath Negative (Negative); Urobilinogen,Cath 0.2 EU/dl (0.2)
[2022-09-06 14:34] LABS: RBC,Urine/Cath Occasional # /hpf (0-3); Squamous Epithelial Ur./Cath Occasional #/hpf (0-5)
== END 2022-09-06 15:13 | disposition home or self-care (01) ==
PROVIDERS: PCP Family Medicine; Visit Provider Surgery
DX: K40.90 Unilateral inguinal hernia, without obstruction or gangrene, not specified as recurrent (principal); Z79.899 Other long term (current) drug therapy
CPT/HCPCS: 49505; 80048; 81001; 85025; 87086; 87088; 87186; 96374; J2405

== ENCOUNTER → 2023-01-31 08:14 | Outpatient (CLI) | payer MEDICARE, SELFPAY ==
[2023-01-31 09:02] LABS: Anion Gap 11.6 mEq/L (5-15); Blood Urea Nitrogen 30 mg/dl (7-17); Calcium 9.4 mg/dl (8.4-10.2); Carbon Dioxide 31 mmol/L (22.0-30.0); Chloride 103 mmol/L (98-107); Estimated Glomerular Filt Rate 43 ml/min (>60); GFR (African American) 52 ML/MIN (>60); Glucose 104 mg/dl (74-100); Potassium 4.6 mmoL/L (3.5-5.1); Sodium 141 mmol/L (136-145)
== END ==
PROVIDERS: PCP Family Medicine; Visit Provider Internal Medicine
DX: I10 Essential (primary) hypertension (principal); R94.31 Abnormal electrocardiogram [ECG] [EKG]; Z01.810 Encounter for preprocedural cardiovascular examination
CPT/HCPCS: 36415; 80048

== ENCOUNTER 2023-02-09 17:49 | Emergency (ER) | payer MEDICARE, SELFPAY ==
[2023-02-09 17:50] VITALS: BP 191/85; PULSE 75; RESP 19; O2SAT 95; BMI 22.6
--- NOTE | 2023-02-09 17:56 | PC.NURSE ---
PATIENT SENT TO ER PER Diandra CAMEJO APRN FOR FURTHER EVALUATION. REPORT GIVEN TO Sheng BUITRAGO RN. PATIENT TRANSPORTED TO ER VIA WHEELCHAIR WITH [facility] STAFF ASSIST AT THIS TIME
--- NOTE | 2023-02-09 18:01 | PC.NURSE ---
Pt arrived to er from [facility]
[2023-02-09 18:05] VITALS: BMI 22.6
--- NOTE | 2023-02-09 18:08 | HMH.EDGENADL ---
Discharge Plan Disposition Patient Disposition: Home, Self-Care Condition: Good Prescriptions Prescriptions: New Paxlovid 300 mg (150 mg x 2)-100 mg tablets,dose pack See Rx Instructions .ROUTE .COMPLEX Qty: 30 0RF Rx Instructions: take TWO 150 mg tablets of nirmatrelvir with ONE 100 mg tablet of ritonavir twice daily for 5 days No Action omeprazole 20 mg capsule,delayed release(DR/EC) 20 mg PO DAILY PRN (Reason: GERD) Qty: 30 5RF clonidine HCl 0.2 mg tablet 0.2 mg PO DIRECTED furosemide 20 mg tablet 20 mg PO DAILYP PRN (Reason: fluid overload) carvedilol [Coreg] 6.25 mg tablet 6.25 mg PO BID Rx Instructions: must administer with a meal/food lisinopril 20 mg tablet 20 mg PO BID hydrochlorothiazide 12.5 mg tablet 6.25 mg PO DAILY Referrals Follow up/Referrals: Kiersten Stevens MD [Primary Care Provider] - See instructions Clinical Impressions Clinical Impression: Acute viral syndrome, Pharyngitis, Fever, COVID-19 Hypertension Qualifiers: Hypertension type: unspecified Qualified Code(s): I10 - Essential (primary) hypertension Discharge ED Provider: Aron Coats [facility] HPI General Chief complaint: Fever 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 by RN): PATIENT C/O HEAD PRESSURE, WEAKNESS, DIZZINESS, SORE THROAT, AND OVERALL NOT FEELING WELL SINCE SHE WOKE UP THIS MORNING. SHE STATES SHE FEELS LIKE SHE IS GOING TO PASS OUT. REPORTS A RECENT EXPOSURE TO COVID History of Present Illness HPI narrative: Is an 82-year-old female with history of hypertension on lisinopril, carvedilol, hydrochlorothiazide presenting with multiple complaints. Patient states that she had lunch with friends and multiple people, since that time, have been diagnosed with coronavirus. Today, patient woke up with dizziness, sore throat, myalgias, and head pressure. Took 2000 mg of Tylenol early afternoon and it helped mildly, but still complaining of headache. Denies confusion, vision changes, unilateral deficits or weakness, chest pain, shortness of breath, cough, or any other concerns. Related Data Home Medications Medication Instructions Recorded Confirmed carvedilol 6.25 mg tablet (Coreg) 6.25 mg PO BID High Blood Pressure 02/09/23 02/09/23 clonidine HCl 0.2 mg tablet 0.2 mg PO DIRECTED High Blood 02/09/23 02/09/23 Pressure furosemide 20 mg tablet 20 mg PO DAILYP PRN fluid overload 02/09/23 02/09/23 hydrochlorothiazide 12.5 mg tablet 6.25 mg PO DAILY High Blood 02/09/23 02/09/23 Pressure lisinopril 20 mg tablet 20 mg PO BID High Blood Pressure 02/09/23 02/09/23 Previous Rx's Medication Instructions Recorded omeprazole 20 mg capsule,delayed 20 mg PO DAILY PRN GERD #30 caps 01/17/23 release nirmatrelvir 300 mg (150 mg See Rx Instructions PO .COMPLEX 02/09/23 x2)-ritonavir 100 mg tablet,dose #30 tabs pack (Paxlovid) Allergies Allergy/AdvReac Type Severity Reaction Status Date / Time Penicillins Allergy Severe SWELLING Verified 01/17/23 08:54 rosuvastatin [From Crestor] Allergy Severe paralysis Verified 01/17/23 08:54 PFSH PFS Disclaimer: The information contained in this section may have been updated after the patient was seen, as this information can be updated by other users. Medical History , [employer]) Allergies Atypical chest pain Cataract Diastolic dysfunction Edema Encounter for pre-operative cardiovascular clearance GERD (gastroesophageal reflux disease) HBP (high blood pressure) Heart murmur History of diverticulitis Polyp of duodenum Sinus headache Strep throat Surgical History , [employer]) History of cataract surgery History of dental surgery
[2023-02-09 18:10] LABS: Influenza A, PCR Not Detected (NotDetected); Influenza B, PCR Not Detected (NotDetected)
--- NOTE | 2023-02-09 18:10 | EXP.UTC ---
Discharge Plan Disposition Patient Disposition: Home, Self-Care Condition: Good Prescriptions Prescriptions: New Paxlovid 300 mg (150 mg x 2)-100 mg tablets,dose pack See Rx Instructions .ROUTE .COMPLEX Qty: 30 0RF Rx Instructions: take TWO 150 mg tablets of nirmatrelvir with ONE 100 mg tablet of ritonavir twice daily for 5 days No Action omeprazole 20 mg capsule,delayed release(DR/EC) 20 mg PO DAILY PRN (Reason: GERD) Qty: 30 5RF clonidine HCl 0.2 mg tablet 0.2 mg PO DIRECTED furosemide 20 mg tablet 20 mg PO DAILYP PRN (Reason: fluid overload) carvedilol [Coreg] 6.25 mg tablet 6.25 mg PO BID Rx Instructions: must administer with a meal/food lisinopril 20 mg tablet 20 mg PO BID hydrochlorothiazide 12.5 mg tablet 6.25 mg PO DAILY Referrals Follow up/Referrals: Kiersten Stevens MD [Primary Care Provider] - See instructions Clinical Impressions Clinical Impression: Acute viral syndrome, Pharyngitis, Fever, COVID-19 Hypertension Qualifiers: Hypertension type: unspecified Qualified Code(s): I10 - Essential (primary) hypertension Instructions Patient Instructions: DI for COVID-19 (Suspected or Confirmed ) Discharge ED Provider: Aron Coats [facility] [place] General Chief complaint: Fever Stated complaint: BECKER, nausea,weak Mode of Arrival: Ambulatory Source of Information: Patient and Relative Limitations: No Limitations Time Seen by Provider: 02/09/23 18:08 Description of Symptoms (Recalled from Triage Doc. by RN): PATIENT C/O HEAD PRESSURE, WEAKNESS, DIZZINESS, SORE THROAT, AND OVERALL NOT FEELING WELL SINCE SHE WOKE UP THIS MORNING. SHE STATES SHE FEELS LIKE SHE IS GOING TO PASS OUT. REPORTS A RECENT EXPOSURE TO COVID HEENT Symptoms (Recalled from RN notes): Yes Resp Symptoms (Recalled from RN notes): Yes Skin Symptoms (Recalled from RN notes): No MS Symptoms (Recalled from RN notes): No Functional Status (Recalled from RN notes): WNL History of Present Illness Provider Complaint: 82 YR OLD FEMALE PRESENTS FOR C/O HEAD PRESSURE, WEAKNESS, DIZZINESS, SORE THROAT, AND OVERALL NOT FEELING WELL SINCE SHE WOKE UP THIS MORNING. SHE STATES SHE FEELS LIKE SHE IS GOING TO PASS OUT. REPORTS A RECENT EXPOSURE TO COVID Related Data Home Medications Medication Instructions Recorded Confirmed carvedilol 6.25 mg tablet (Coreg) 6.25 mg PO BID High Blood Pressure 02/09/23 02/09/23 clonidine HCl 0.2 mg tablet 0.2 mg PO DIRECTED High Blood 02/09/23 02/09/23 Pressure furosemide 20 mg tablet 20 mg PO DAILYP PRN fluid overload 02/09/23 02/09/23 hydrochlorothiazide 12.5 mg tablet 6.25 mg PO DAILY High Blood 02/09/23 02/09/23 Pressure lisinopril 20 mg tablet 20 mg PO BID High Blood Pressure 02/09/23 02/09/23 Previous Rx's Medication Instructions Recorded omeprazole 20 mg capsule,delayed 20 mg PO DAILY PRN GERD #30 caps 01/17/23 release nirmatrelvir 300 mg (150 mg See Rx Instructions PO .COMPLEX 02/09/23 x2)-ritonavir 100 mg tablet,dose #30 tabs pack (Paxlovid) Allergies Allergy/AdvReac Type Severity Reaction Status Date / Time Penicillins Allergy Severe SWELLING Verified 01/17/23 08:54 rosuvastatin [From Crestor] Allergy Severe paralysis Verified 01/17/23 08:54 Worker's Comp Is this a Worker's Comp case?: No [facility] Disclaimer: The information contained in this section may have been updated after the patient was seen, as this information can be updated by other users. Medical History , [employer]) Allergies Atypical chest pain Cataract Diastolic dysfunction Edema Encounter for pre-operative cardiovascular clearance GERD (gastroesophageal reflux disease) HBP (high blood pressure) Heart murmur History of diverticulitis Polyp of duodenum Sinus headache Strep throat Surgical History , [employer]) History of cataract surgery History of dental kei
[2023-02-09 18:12] VITALS: PULSE 78; RESP 17; TEMP 38.3; O2SAT 97; BMI 23.3
--- NOTE | 2023-02-09 18:27 | ECG_ITS ---
APPROVED REPORT Exam: Resting ECG HR:69 bpm ECG Measurements Heart Rate 69 AXES AR 159 P 69 QRSd 115 QRS 54 QT 351 T 51 QTc 370 Conclusion SINUS RHYTHM MODERATE INTRAVENTRICULAR CONDUCTION DELAY [110+ ms QRS DURATION] BORDERLINE ECG UNCONFIRMED REPORT Electronically signed by : Yovanny Magaña MD 02/10/2023 07:01:44
[2023-02-09 18:30] VITALS: BP 166/67; PULSE 71; RESP 18; O2SAT 94
[2023-02-09 18:43] VITALS: TEMP 37.4
[2023-02-09 18:43] LABS: Coronavirus 19, PCR Detected (NotDetected)
[2023-02-09 18:57] VITALS: BP 166/67; PULSE 78; RESP 18; TEMP 37.4; O2SAT 92
== END 2023-02-09 19:04 | disposition home or self-care (01) ==
LOC: UTC 17:53 → ER 17:59
PROVIDERS: Emergency Provider Emergency Medicine; PCP Family Medicine
DX: U07.1 COVID-19 (principal); J02.9 Acute pharyngitis, unspecified; R50.9 Fever, unspecified; I10 Essential (primary) hypertension; K21.9 Gastro-esophageal reflux disease without esophagitis
CPT/HCPCS: 87636; 93005; 99284